=== PATIENT | male | born 1985 | race African-American/Black ===

== ENCOUNTER 2019-05-06 16:53 | Outpatient (CLI) | payer OTHER, SELFPAY ==
--- NOTE | ~2019-05-06 | MR_ITS ---
EXAMINATION: MR foot RT wo con DATE: 05/06/2019 18:07 INDICATION: Right foot pain. TECHNIQUE: Magnetic resonance imaging (MRI) of the right foot was performed without intravenous contr ast. Sequences included sagittal T1-weighted FSE and STIR FSE, long-axis PD-weighted FS FSE and PD-we ighted FSE, and short-axis PD-weighted FS FSE and T1-weighted FSE. COMPARISON: Right foot radiographs 04/23/2019, 04/16/2019 FINDINGS: There is mild hallux valgus. There is a skin marker medial to first metatarsophalangeal gabriela nt. No fracture. There is mild osteoarthritis of first metatarsophalangeal joint. Lisfranc ligament i s intact. There is a 17 x 8 mm ganglion cyst plantar to intermediate cuneiform. The flexor and extens or tendons are normal. IMPRESSION: 1. Mild hallux valgus. 2. Mild osteoarthritis of first metatarsophalangeal joint. 3. 17 mm ganglion cyst plantar to intermediate cuneiform. Reviewed, dictated and finalized at location A. TAL PRE PRESS OPERATOR
== END 2019-05-06 16:54 | disposition home or self-care (01) ==
PROVIDERS: PCP Orthopaedic Surgery; Visit Provider Orthopaedic Surgery
DX: M20.11 Hallux valgus (acquired), right foot (principal); M19.071 Primary osteoarthritis, right ankle and foot; M67.471 Ganglion, right ankle and foot
CPT/HCPCS: 73718

== ENCOUNTER 2020-10-02 15:46 | Emergency (ER) | payer SELFPAY ==
[2020-10-02] VITALS (16 sets, daily range): BP systolic 130–158; BP diastolic 80–94; PULSE 60–70; RESP 16–27; TEMP 36.4; O2SAT 95–100
--- NOTE | ~2020-10-02 | XR_ITS ---
EXAMINATION: XR chest 2V DATE: 10/02/2020 16:12 INDICATION: Shortness of breath TECHNIQUE: PA and lateral views of the chest are obtained. COMPARISON: None available FINDINGS: The lungs are free of acute opacities. There is no pleural effusion or pneumothorax. The ca rdiomediastinal silhouette is normal. The visualized bones and soft tissues are unremarkable. IMPRESSION: 1. No acute cardiopulmonary abnormality. Reviewed, dictated and finalized at location B.
--- NOTE | 2020-10-02 15:49 | ECG_ITS ---
Measurements Intervals [place] Rate: 63 P: 35 IA: 177 QRS: 27 QRSD: 104 T: 13 QT: 375 QTc: 386 Interpretive Statements SINUS RHYTHM CONSIDER INFERIOR INFARCT, AGE INDETERMINATE BORDERLINE T WAVE ABNORMALITY- ANTERIOR LEADS BASELINE ARTIFACT- I, II, AVR, AVL ABNORMAL ECG Electronically Signed On 10-02-2020 15:59:34 CDT by Christopher Marin D.O.
[2020-10-02 16:05] LABS: Basophils Absolute Auto 0.1 K/mm3 (0.0-0.1); Basophils Percent Auto 0.6 % (0.2-1.2); Eosinophils Absolute Auto 0.2 K/mm3 (0-0.3); Eosinophils Percent Auto 1.8 % (0-4.4); Hematocrit 47.8 % (42.0-52.0); Immature Granulocyte Absolute 0.06 K/mm3 (0.00-0.031); Immature Granulocyte Percent A 0.6 % (0-0.5); Lymphocytes Absolute Auto 3.17 K/mm3 (0.9-3.2); Lymphocytes Percent Auto 32.5 % (18.3-44.2); Mean Corpuscular HGB Conc 31.4 g/dl (32-36); Mean Corpuscular Hemoglobin 27.6 pg (26-34); Mean Corpuscular Volume 87.9 fl (80-100); Mean Platelet Volume 10.2 fl (7.4-10.4); Monocytes Absolute Auto 0.9 K/mm3 (0.1-0.6); Monocytes Percent Auto 9.2 % (2.6-8.5); Neutrophils Absolute Auto 5.4 K/mm3 (1.3-6.7); Neutrophils Percent Auto 55.3 % (45.5-73.1); Platelet Count Result 301 k/mm3 (150-375); Red Blood Count 5.44 M/mm3 (4.6-6.20); Red Cell Distribution Width 13.1 % (11.5-14.5); White Blood Count 9.8 K/mm3 (4.5-10.0)
[2020-10-02 16:14] LABS: Anion Gap 9 mmol/L (8-16); Blood Urea Nitrogen 10 mg/dL (9-20); Calcium 9.4 mg/dL (8.4-10.2); Carbon Dioxide 23 mmol/L (22-30); Chloride 109 mmol/L (98-107); Estimated CRCL calculation 91 ml/min; Estimated Glomerular Filt Rate > 60; Glucose 114 mg/dL (75-110); Potassium 3.7 mmol/L (3.4-5.0); Sodium 141 mmol/L (137-145)
[2020-10-02 17:35] LABS: NT Pro B Type Natriuretic Pept 82 pg/mL (5-100)
--- NOTE | 2020-10-02 17:41 | ED.GENADULT ---
HPI - General Adult General Chief complaint: Shortness of Breath/Dyspnea Stated complaint: hard to breathe, blanking out of space Time Seen by Provider: 10/02/20 16:55 Source: patient History of Present Illness HPI narrative: Patient is a 35 y/o male complaining of moderate to severe SOB for last 2 days. He has no cough, chest pain, leg swelling or fever. He states that upright position seems to help his SOB. Related Data Home Medications Medication Instructions Recorded Confirmed Unable to Obtain Home Medications 10/02/20 10/02/20 Allergies Allergy/AdvReac Type Severity Reaction Status Date / Time No Known Allergies Allergy Verified 10/02/20 17:23 Review of Systems Constitutional: Constitutional: Denies chills, Denies fever(s), Denies headache(s) and Denies weakness Eyes: Eyes: Denies blurry vision ENT: Denies headache(s) and Denies neck pain Cardiovascular: Cardiovascular: Denies chest pain and Reports dyspnea Respiratory: Respiratory: Denies cough and Reports dyspnea Gastrointestinal: Gastrointestinal: Denies abdominal pain, Denies diarrhea, Denies nausea and Denies vomiting Genitourinary: Genitourinary: Denies hematuria and Denies dysuria Musculoskeletal: Musculoskeletal: Denies back pain and Denies neck pain Neurologic: Denies headache(s) and Denies weakness [facility] Past Medical History Medical History (Updated 10/03/20 @ 00:00 by Background Daemon) Contusion of foot, right History of hypertension Tarsal tunnel syndrome of right side Family History Family History Other Cerebrovascular accident Diabetes mellitus Family history of alcoholism Family history of arthritis Family history of cardiovascular disease Family history of mental disorder Hypertension Social History Social History Gender identity (if verbalized by the patient): Male Exam Const: General: no acute distress and well developed Orientation/consciousness: oriented to person, oriented to place, oriented to time and patient oriented x3 HENMT: Head: normocephalic Ears: external ears normal General nose exam: Normal external nose present Eyes: General: appearance normal, both eyes and all related structures Conjunctivae: conjunctivae normal Neck: Neck: normal visual inspection and full ROM Chest: Chest palpation & inspection: normal inspection of the chest and no tenderness Resp: Effort & Inspection: normal respiratory effort Auscultation: clear to auscultation bilaterally Cardio: Rate: regular rate Rhythm: regular rhythm GI: GI Palp: No abdominal tenderness and Yes Soft to palpation Skin: General skin exam: normal color and turgor normal Neuro: General: oriented to person, oriented to place, oriented to time and patient oriented x3 Cognition (Neuro): normal cognition Extrem: General: normal to inspection, full ROM and no pedal edema Psych: Appearance: grossly normal Mental Status: mental status grossly normal Affect: normal affect Course Vital Signs Vital signs: Vital Signs Temperature 36.4 C 10/02/20 15:59 Pulse Rate 65 10/02/20 15:59 Respiratory Rate 20 10/02/20 15:59 Blood Pressure 149/94 H 10/02/20 15:59 Pulse Oximetry 100 10/02/20 15:59 Temperature 36.4 C 10/02/20 15:59 Pulse Rate 66 10/02/20 22:34 Respiratory Rate 22 H 10/02/20 22:34 Blood Pressure 158/89 H 10/02/20 22:34 Pulse Oximetry 99 10/02/20 22:34 Medical Decision Making Vital Signs Vital Signs: Vital Signs Temperature 36.4 C 10/02/20 15:59 Pulse Rate 65 10/02/20 15:59 Respiratory Rate 20 10/02/20 15:59 Blood Pressure 149/94 H 10/02/20 15:59 Pulse Oximetry 100 10/02/20 15:59 Temperature 36.4 C 10/02/20 15:59 Pulse Rate 66 10/02/20 22:34 Respiratory Rate 22 H 10/02/20 22:34 Blood Pressure 158/89 H 10/02/20 22:34 Pulse Oximetry 99 10/02/20
[2020-10-02 18:00] LABS: Troponin I < 0.012 ng/mL (0.000-0.034)
[2020-10-02 18:15] LABS: D Dimer 0.27 ug/mL (<0.48)
--- NOTE | 2020-10-02 21:03 | PC.NURSE ---
attempted stick for 3hr trop, failed. told Keila VEGA and Nisreen Gomez RN. Contacted Lily Boss (?), on my own for stick. Said she would be on her way.
--- NOTE | 2020-10-02 21:09 | PC.NURSE ---
attempted to obtain labs for Troponin, unable at this time. several attempts made. armature winder repairer notified.
[2020-10-02 22:00] LABS: Troponin I < 0.012 ng/mL (0.000-0.034)
== END 2020-10-02 23:10 | disposition home or self-care (01) ==
PROVIDERS: Emergency Medicine; Emergency Provider Emergency Medicine
DX: R06.02 Shortness of breath (principal)
CPT/HCPCS: 36415; 71046; 80048; 83880; 84484; 85025; 85380; 93005; 99284

== ENCOUNTER 2020-10-15 22:14 | Emergency (ER) | payer MEDICARE, SELFPAY ==
--- NOTE | ~2020-10-15 | CT_ITS ---
EXAMINATION: CT brain wo con DATE: 10/16/2020 00:51 INDICATION: Headache. TECHNIQUE: Computed tomography (CT) of the head was performed without intravenous contrast. The mA wa s adjusted according to patient size. Iterative reconstruction technique was employed. The dose-lengt h product was 681.00 mGy-cm. COMPARISON: Head CT 03/10/2017 FINDINGS: There is no intracranial hemorrhage, acute infarction, or abnormal intracranial mass lesion . The ventricles are normal in size. The orbits are normal. There is mild mucosal thickening in the p aranasal sinuses. The mastoid air cells are normal. IMPRESSION: 1. Normal brain. Reviewed, dictated and finalized at location A. IMPRESSION: 1. Normal brain.
[2020-10-15 22:27] VITALS: BP 118/59; PULSE 66; RESP 17; TEMP 36.8; O2SAT 100
--- NOTE | 2020-10-16 00:35 | ED.GENADULT ---
HPI - General Adult General Chief complaint: Allergic Reaction Stated complaint: facial swelling Time Seen by Provider: 10/16/20 00:16 Source: RN notes reviewed History of Present Illness HPI narrative: Patient presents emergency department from home for headache. Patient states for the past 3 weeks he has been having intermittent pain that he feels like something is swelling inside his head over his right frontal forehead he denies any physical external swelling of the forehead he denies any ear pain vision changes rhinorrhea sore throat numbness or tingling in extremities or any other symptoms he states he does take medication at home for the pain that intermittently is helpful states did not take anything today he denies any fevers or chills Related Data Allergies Allergy/AdvReac Type Severity Reaction Status Date / Time No Known Allergies Allergy Verified 10/02/20 17:23 Review of Systems Review of Systems: Narrative: Gen.: Denies fevers or chills Eyes: Denies eye pain or visual change ENT: Denies congestion Respiratory: Denies shortness of breath or cough CV: Denies chest pain or palpitations GI: Denies abdominal pain nausea, emesis or diarrhea Musculoskeletal: Denies back pain or muscle pain Neuro: See HPI Skin: Denies rash Except as documented, all other systems reviewed and negative PMFSH Past Medical History Medical History Contusion of foot, right History of hypertension Tarsal tunnel syndrome of right side Family History Family History Other Cerebrovascular accident Diabetes mellitus Family history of alcoholism Family history of arthritis Family history of cardiovascular disease Family history of mental disorder Hypertension Social History Social History Gender identity (if verbalized by the patient): Male Exam Narrative: Exam Narrative: APPEARANCE: No acute distress, nontoxic, resting in bed EYES: EOMI HEENT: Normocephalic, atraumatic, TMs clear bilaterally nares patent or mucosa moist erythema exudate posterior pharynx no swelling of the forehead RESPIRATORY: No respiratory distress Clear to auscultation bilaterally with no rhonchi wheezing or rales. CARDIOVASCULAR: Regular rate and rhythm without murmurs rubs or gallops. ABDOMINAL: Soft, nontender, nondistended, no rebound or guarding MUSCULOSKELETAl: Moves all extremities. NEURO: Awake and alert x 4 Following commands, speech normal, no focal deficits SKIN:: Warm, dry. No rashes lesions or abrasions PSYCHIATRIC: Normal affect/mood, Course Course Emergency Course: Patient states headache is improved at this time Discussed with patient results of workup and diagnosis. Discussed need for follow-up with primary care, proper use of medication, and reasons to return to the emergency department. Patient understands and agrees to current treatment plan Vital Signs Vital signs: Vital Signs Temperature 98.2 F 10/15/20 22:27 Pulse Rate 66 10/15/20 22:27 Respiratory Rate 17 10/15/20 22:27 Blood Pressure 118/59 L 10/15/20 22:27 Pulse Oximetry 100 10/15/20 22:27 Temperature 98.2 F 10/15/20 22:27 Pulse Rate 66 10/15/20 22:27 Respiratory Rate 17 10/15/20 22:27 Blood Pressure 118/59 L 10/15/20 22:27 Pulse Oximetry 100 10/15/20 22:27 Medical Decision Making MDM Narrative Medical decision making narrative: Patient's headache was not sudden or maximal in onset. There are no focal deficits on exam. Subarachnoid hemorrhage is felt to be unlikely at this time. There is no history of fever and neck is supple to evaluation without meningismus. Meningitis is felt to be unlikely. No traumatic history or signs of trauma on evaluation. Risk factors for cerebral venous thrombosis reviewed, no visual acuity change benign funduscopy. Cerebral venous thrombosis is felt
[2020-10-16] MEDS: IBUPROFEN 600 MG TABLET PO (01:14)
[2020-10-16 01:42] VITALS: BP 151/87; PULSE 84; RESP 17; O2SAT 99
--- NOTE | 2020-10-16 03:19 | PC.NURSE ---
d/c while this RN with another pt.
== END 2020-10-16 01:43 | disposition home or self-care (01) ==
PROVIDERS: Emergency Provider Emergency Medicine
DX: R51.9 Headache, unspecified (principal); I10 Essential (primary) hypertension
CPT/HCPCS: 70450; 99284; A9270

== ENCOUNTER 2022-11-20 17:42 | Emergency (ER) | payer SELFPAY ==
[2022-11-20 17:46] VITALS: BP 154/94; PULSE 106; RESP 16; TEMP 36.7
--- NOTE | 2022-11-20 19:02 | ED.DENTAL ---
HPI - Dental/Oral General Chief complaint: Dental/Oral Stated complaint: hole inside of mouth Time Seen by Provider: 11/20/22 17:58 History of Present Illness HPI Narrative: 37-year-old male presented emergency department for evaluation of worsening dental pain. Patient states the pain started bothering him approximately 3 days ago. Patient does have a history of dental extraction and reports he does have follow-up with a dentist scheduled. Related Data Allergies Allergy/AdvReac Type Severity Reaction Status Date / Time No Known Allergies Allergy Verified 11/20/22 19:07 Review of Systems Review of Systems: All systems reviewed & are unremarkable except as noted in HPI and below PMFSH Past Medical History Medical History Contusion of foot, right History of hypertension Tarsal tunnel syndrome of right side Family History Family History Other Cerebrovascular accident Diabetes mellitus Family history of alcoholism Family history of arthritis Family history of cardiovascular disease Family history of mental disorder Hypertension Social History Social History Gender identity (if verbalized by the patient): Male Exam Narrative: APPEARANCE: Well appearing, no pain, no distress, well-nourished. HEAD: normocephalic, atraumatic. EYES: PERRLA/EOMI, conjunctivae clear. NOSE: Normal no drainage EARS:TMS clear with good light reflex. THROAT: Pharynx clear, no exudate. Dental: Dental caries with no abscess amenable to drainage, no trismus NECK: Supple. No adenopathy, no masses. RESPIRATORY: Airway patent, respirations nonlabored. Clear to auscultation bilaterally, no rales, rhonchi, wheezing. CARDIOVASCULAR: Regular rate and rhythm without murmurs rubs or gallops. ABDOMINAL: Soft, nontender, nondistended, normal bowel sounds MUSCULOSKELETAL: Moves all extremities. Strength/ROM intact, No edema, No calf tenderness. NEURO: Alert. Cranial nerves II through XII intact. Good gait. Good coordination Course Course Emergency Course: 37-year-old male with dental caries. Patient was started on antibiotics and provided medications for pain control. Patient was encouraged of close follow-up with his dentist. Vital Signs Vital signs: Vital Signs Temperature 98.1 F 11/20/22 17:46 Pulse Rate 106 H 11/20/22 17:46 Respiratory Rate 16 11/20/22 17:46 Blood Pressure 154/94 H 11/20/22 17:46 Temperature 98.1 F 11/20/22 17:46 Pulse Rate 95 11/20/22 19:30 Respiratory Rate 16 11/20/22 19:30 Blood Pressure 156/76 H 11/20/22 19:30 Pulse Oximetry 98 11/20/22 19:30 Discharge Plan Discharge Clinical Impression: Toothache Patient Disposition: Home, Self-Care Condition: Stable Instructions: Antibiotic Form, Toothache (ED) Additional Instructions: Antibiotic as directed till completed. Ibuprofen for pain control. Oxly as needed for additional pain control. Have close follow-up with your dentist. Prescriptions: New hydrocodone-acetaminophen 5-325 mg tablet 1 tablet PO Q12H PRN (Reason: pain) Qty: 10 0RF No Action ibuprofen [IBU] 600 mg tablet 600 mg PO Q6H PRN (Reason: pain) Qty: 20 0RF Follow-up/Referrals: UNKNOWN,DOCTOR [Primary Care Provider] -
[2022-11-20] MEDS: HYDROcodone/acetaminophen (*CRX) 5-325 MG TABLET 1 TAB PO (19:07)
[2022-11-20] MEDS: AMOXICILLIN/CLAVULANATE K 875-125 MG TAB 1 TABLET PO (19:07)
[2022-11-20 19:30] VITALS: BP 156/76; PULSE 95; RESP 16; O2SAT 98
== END 2022-11-20 19:32 | disposition home or self-care (01) ==
LOC: ANHED 19:25
PROVIDERS: Emergency Provider Emergency Medicine
DX: K08.89 Other specified disorders of teeth and supporting structures (principal); I10 Essential (primary) hypertension
CPT/HCPCS: 99283; A9270

== ENCOUNTER 2023-04-29 22:01 | Emergency (ER) | payer MEDICARE, SELFPAY ==
--- NOTE | ~2023-04-29 | CT_ITS ---
CT of the Abdomen and Pelvis: Indication: Abdominal pain Technique: 2.5 mm axial scans were obtained through the abdomen and pelvis following intravenous adm inistration of 100 cc of Omnipaque 350. Dose reduction technique was used on this scan by utilizing a utomated exposure control and iterative reconstruction technique. The dose-length product (DLP) was 1 585.93 mGy-cm. Findings: Scans through the lung bases demonstrates several semisolid/groundglass right basilar pulm onary nodules, largest measuring 1 cm.. The liver, spleen, pancreas, gallbladder, adrenals and kidneys are within normal limits. No evidence of aortic aneurysm. No lymphadenopathy. No bowel obstruction or bowel wall thickening. There is no evidence to suggest acute appendicitis. Images through the pelvis were performed. Urinary bladder unremarkable. No pelvic mass seen. No ascit es. Impression: Right basilar probably semisolid/ground glass nodules, largest measuring 1 cm. Findings could be infe ctious in nature. Short-term follow-up CT recommended to reassess in 1-3 months. Reviewed, dictated and finalized at [facility]. K SUPERVISOR Impression: Right basilar probably semisolid/ground glass nodules, largest measuring 1 cm. Findings could be infectious in nature. Short-term follow-up CT recommended to reassess in 1-3 months.
[2023-04-29 22:05] VITALS: BP 146/90; PULSE 93; RESP 15; TEMP 36.7; O2SAT 100
[2023-04-29 22:29] LABS: Basophils Percent Auto 0.3 % (0.2-1.2); Eosinophils Absolute Auto 0.1 K/mm3 (0-0.3); Hematocrit 43.3 % (42.0-52.0); Hemoglobin 13.5 g/dL (14.0-18.0); Immature Granulocyte Absolute 0.03 K/mm3 (0.00-0.031); Immature Granulocyte Percent A 0.5 % (0-0.5); Lymphocytes Absolute Auto 2.83 K/mm3 (0.9-3.2); Lymphocytes Percent Auto 44.9 % (18.3-44.2); Mean Corpuscular HGB Conc 31.2 g/dl (32-36); Mean Corpuscular Volume 86.6 fl (80-100); Mean Platelet Volume 11.3 fl (7.4-10.4); Monocytes Absolute Auto 1.4 K/mm3 (0.1-0.6); Monocytes Percent Auto 22.9 % (2.6-8.5); Neutrophils Absolute Auto 1.9 K/mm3 (1.3-6.7); Neutrophils Percent Auto 30.4 % (45.5-73.1); Platelet Count Result 219 k/mm3 (150-375); Red Cell Distribution Width 12.5 % (11.5-14.5); White Blood Count 6.3 K/mm3 (4.5-10.0)
[2023-04-29 22:41] LABS: Alanine Aminotransferase 23 U/L (6-50); Albumin Level 3.8 g/dL (3.5-5.1); Alkaline Phosphatase 63 U/L (38-126); Anion Gap 7 mmol/L (8-16); Aspartate Amino Transferase 34 U/L (17-59); Bilirubin,Total 0.9 mg/dL (0.2-1.3); Blood Urea Nitrogen 16 mg/dL (9-20); Calcium 8.3 mg/dL (8.4-10.2); Carbon Dioxide 22 mmol/L (22-30); Chloride 106 mmol/L (98-107); Estimated CRCL calculation 109 ml/min; Estimated Glomerular Filt Rate > 60; Glucose 103 mg/dL (65-110); Lipase 98 U/L (23-300); Sodium 135 mmol/L (137-145)
[2023-04-30 00:48] VITALS: BP 156/106; PULSE 76; RESP 18; O2SAT 98
[2023-04-30 03:05] VITALS: BP 133/84; PULSE 86; RESP 18; O2SAT 98
[2023-04-30 03:23] LABS: Appearance Urine Clear (Clear); Bacteria Urine None Seen /hpf; Bilirubin Urine 1+ (Negative); Blood Urine Negative (Negative); Color Urine Dark Yellow (Yellow); Glucose Urine UA Negative (Negative); Ketones Urine Trace mg/dL (Negative); Leukocyte Esterase Ur Negative LEU/UL (Negative); Nitrate Urine Negative (Negative); Non Pathogenic Casts 0-2; Protein Urine 1+ mg/dL (Negative); Squamous Epithelial Cell Urine None seen /hpf (Few); WBC Urine 0-5 /hpf; pH Urine 5.5 (5.0-9.0)
[2023-04-30] MEDS: SODIUM CHLORIDE 0.9% IV 1,000 ML 999 ML IV CONT (03:49)
[2023-04-30] MEDS: ONDANSETRON INJ 4 MG/2 ML VIAL IV PUSH (03:49)
[2023-04-30] MEDS: MORPHINE SULFATE (*CRX) 4 MG/ML INJ IV PUSH (03:49)
[2023-04-30 03:57] LABS: Specific Grav Ur 1.037 (1.001-1.035)
[2023-04-30 04:04] LABS: Add Urine Microscopic? YES
--- NOTE | 2023-04-30 05:14 | ED.GENADULT ---
HPI - General Adult General Chief complaint: Abdominal Pain Stated complaint: abdominal pain Time Seen by Provider: 04/30/23 03:04 History of Present Illness HPI narrative: Patient is a 37-year-old gentleman presents emergency department chief complaint of intermittent abdominal pain for the last several months patient states the pain is more epigastric and right upper quadrant patient reports that it is worse whenever he eats greasy fatty foods. The patient denies fever denies chills Related Data Allergies Allergy/AdvReac Type Severity Reaction Status Date / Time No Known Allergies Allergy Verified 04/30/23 03:07 Review of Systems Review of Systems: A 10 system review of systems was completed on the patient and is negative except for what is stated in the HPI. Nursing and ancillary documentation was reviewed. [facility] Past Medical History Medical History Contusion of foot, right History of hypertension Tarsal tunnel syndrome of right side Family History Family History Other Cerebrovascular accident Diabetes mellitus Family history of alcoholism Family history of arthritis Family history of cardiovascular disease Family history of mental disorder Hypertension Social History Social History Gender identity (if verbalized by the patient): Male Exam Narrative: GENERAL: Well-appearing, well-nourished, and in no acute distress. HEAD: Normocephalic, atraumatic. EYES: PERRLA and EOMI. ENT: Nares clear, no rhinorrhea or epistaxis. Mucous membranes moist. NECK: Supple. CHEST: Clear to auscultation. No respiratory distress. HEART: Regular rate and rhythm. No murmur heard. Normal peripheral pulses. ABDOMEN: Soft, tenderness to palpation in the epigastric and right upper quad, nondistended, normal active bowel sounds. EXTREMITIES: Normal range of motion. No edema. SKIN: Warm, dry, no rash. NEURO: No focal deficits. Alert and oriented x3. PSYCH: Normal mood and affect. Course Vital Signs Vital signs: Vital Signs Temperature 36.7 C 04/29/23 22:05 Pulse Rate 93 04/29/23 22:05 Respiratory Rate 15 04/29/23 22:05 Blood Pressure 146/90 H 04/29/23 22:05 Pulse Oximetry 100 04/29/23 22:05 Oxygen Delivery Room Air 04/29/23 22:05 Temperature 36.7 C 04/29/23 22:05 Pulse Rate 86 04/30/23 03:05 Respiratory Rate 18 04/30/23 03:05 Blood Pressure 133/84 04/30/23 03:05 Pulse Oximetry 98 04/30/23 03:05 Oxygen Delivery Room Air 04/29/23 22:05 Medical Decision Making MDM Narrative Medical decision making narrative: Differential diagnosis includes gastritis, biliary colic, cholecystitis, choledocholithiasis, pancreatitis Laboratory studies were obtained which were within normal limits CT scan of the abdomen pelvis showed no acute abnormalities. Patient will be started on Protonix and given prescription for Zofran patient will be referred to primary care and may need further testing as an outpatient. Vital Signs Vital Signs: Vital Signs Temperature 36.7 C 04/29/23 22:05 Pulse Rate 93 04/29/23 22:05 Respiratory Rate 15 04/29/23 22:05 Blood Pressure 146/90 H 04/29/23 22:05 Pulse Oximetry 100 04/29/23 22:05 Oxygen Delivery Room Air 04/29/23 22:05 Temperature 36.7 C 04/29/23 22:05 Pulse Rate 86 04/30/23 03:05 Respiratory Rate 18 04/30/23 03:05 Blood Pressure 133/84 04/30/23 03:05 Pulse Oximetry 98 04/30/23 03:05 Oxygen Delivery Room Air 04/29/23 22:05 Lab Data 04/29/23 22:12 04/29/23 22:12 Labs: Lab Results 04/29/23 04/30/23 Range/Units 22:12 03:09 WBC 6.3 (4.5-10.0) K/mm3 RBC 5.00 (4.6-6.20) M/mm3 Hgb 13.5 L (14.0-18.0) g/dL Hct 43.3 (42.0-52.0) % MCV 86.6 (80-100)
[2023-04-30 05:45] VITALS: BP 134/73; PULSE 73; RESP 17; O2SAT 99
== END 2023-04-30 05:45 | disposition home or self-care (01) ==
PROVIDERS: Emergency Provider Emergency Medicine
DX: K29.70 Gastritis, unspecified, without bleeding (principal); I10 Essential (primary) hypertension
CPT/HCPCS: 36415; 74177; 80053; 81001; 83690; 85025; 96361; 96374; 96375; 99284; J2270; J2405; J7030; Q9967

== ENCOUNTER 2023-06-20 17:48 | Emergency (ER) | payer OTHER, MEDICAID, SELFPAY ==
[2023-06-20] VITALS (8 sets, daily range): BP systolic 131–148; BP diastolic 72–126; PULSE 81–107; RESP 18–20; TEMP 37.3; O2SAT 99–100
--- NOTE | ~2023-06-20 | CT_ITS ---
EXAMINATION: CT abdomen pelvis w con DATE: 06/20/2023 20:07 INDICATION: Recent colonoscopy. Rectal pain. TECHNIQUE: Computed tomography (CT) of the abdomen and pelvis was performed with 100 cc Omnipaque 350 intravenous contrast. The dose-length product was 1148.00 mGy-cm. Automated exposure control and ite rative reconstruction technique were employed. COMPARISON: CT dated 04/30/2023. FINDINGS: Lung bases unremarkable. Heart size normal. No significant pleural or pericardial effusion. The liver, spleen, pancreas, adrenal glands and kidneys are unremarkable. Colonic diverticulosis wit hout evidence for diverticulitis. Bladder is decompressed. Normal appendix. No abnormal pelvic masses or fluid collections. No significant vascular abnormality. Gallbladder is contracted. No lymphadenop athy. Small hiatal hernia. Bladder is decompressed. No acute osseous abnormality. Interval resolution of right lower lobe groundglass nodules. IMPRESSION: 1. No acute abdominal abnormality. Reviewed, dictated and finalized at location A.
--- NOTE | 2023-06-20 18:07 | ED.GENADULT ---
HPI - General Adult General Chief complaint: Recheck/Abnormal Lab/Rx Stated complaint: colonoscopy in [place] today, c/o pain Time Seen by Provider: 06/20/23 17:53 Source: patient Mode of arrival: ambulatory Limitations: no limitations History of Present Illness HPI narrative: Patient is a 37-year-old male who presents the ED with report of rectal pain. Patient reports he has been having ongoing rectal pain for the last 5 months. He underwent outpatient colonoscopy today with Dr. Lucas Mauro in an outpatient GI clinic in [place], [place] and was told he had fairly severe internal hemorrhoids. He was told he may need laser surgery for the internal hemorrhoids. Since having the procedure done today, patient has had worsening rectal pain. He has not tried anything for the pain. He denies any rectal bleeding or bowel movements today. He did have some bleeding with bowel movements yesterday after taking the colonoscopy prep. Denies abdominal pain, nausea, vomiting, fevers, urinary complaints. Related Data Allergies Allergy/AdvReac Type Severity Reaction Status Date / Time No Known Allergies Allergy Verified 04/30/23 03:07 Review of Systems Review of Systems: CONSTITUTIONAL: Denies fever, chills, or sweats. GASTROINTESTINAL: See HPI. GENITOURINARY: Denies dysuria or hematuria. MUSCULOSKELETAL: Denies back pain, extremity pain, myalgia. All systems reviewed & are unremarkable except as noted in HPI and below PMFSH Past Medical History Medical History Contusion of foot, right History of hypertension Tarsal tunnel syndrome of right side Family History Family History Other Cerebrovascular accident Diabetes mellitus Family history of alcoholism Family history of arthritis Family history of cardiovascular disease Family history of mental disorder Hypertension Social History Social History Gender identity (if verbalized by the patient): Male Exam Narrative: GENERAL: Well appearing, obese with BMI of 36.0, non-toxic, in no acute distress. HEAD: Normocephalic, atraumatic. RESPIRATORY: Airway patent, respirations nonlabored. Clear to auscultation bilaterally, no rales, rhonchi, wheezing. CARDIOVASCULAR: Borderline tachycardic with regular rhythm without murmurs, rubs, or gallops. ABDOMINAL: Soft, minimal tenderness throughout upper abdomen, no lower abdominal tenderness, nondistended. Normoactive BS. MUSCULOSKELETAL: Moves all extremities. No gross deformities. SKIN: Warm, dry, normal color. NEURO: A&O X3. Speech clear. PSYCHIATRIC: Appropriate mood and affect. Normal interaction. Course Vital Signs Vital signs: Vital Signs Temperature 99.1 F 06/20/23 17:52 Pulse Rate 107 H 06/20/23 17:52 Respiratory Rate 20 06/20/23 17:52 Blood Pressure 145/99 H 06/20/23 17:52 Pulse Oximetry 100 06/20/23 17:52 Oxygen Delivery Room Air 06/20/23 17:52 Temperature 99.1 F 06/20/23 17:52 Pulse Rate 81 06/20/23 20:26 Respiratory Rate 18 06/20/23 20:26 Blood Pressure 139/79 06/20/23 20:26 Pulse Oximetry 100 06/20/23 20:30 Oxygen Delivery Room Air 06/20/23 17:52 Medical Decision Making MDM Narrative Medical decision making narrative: Patient presented to ED with acute on chronic rectal pain status post outpatient colonoscopy today. Outpatient colonoscopy showed internal hemorrhoids. No other significant associated symptoms at this time. Vital signs are stable upon arrival, patient borderline tachycardic. Fluids initiated. Exam unremarkable. I discussed performing rectal exam however patient deferred at this time, states pain feels the same as what he has been experiencing over the last several weeks. Laboratory studies fairly unremarkable. CBC with leukocytosis of 10.4. Stab
[2023-06-20] MEDS: SODIUM CHLORIDE 0.9% IV 1,000 ML 999 ML IV CONT (18:22)
[2023-06-20] MEDS: MORPHINE SULFATE (*CRX) 4 MG/ML INJ IV PUSH (18:23)
[2023-06-20] MEDS: ONDANSETRON INJ 4 MG/2 ML VIAL IV PUSH (18:24)
[2023-06-20 19:15] LABS: Basophils Percent Auto 0.4 % (0.2-1.2); Eosinophils Absolute Auto 0.4 K/mm3 (0-0.3); Eosinophils Percent Auto 3.6 % (0-4.4); Hemoglobin 13.6 g/dL (14.0-18.0); Immature Granulocyte Absolute 0.05 K/mm3 (0.00-0.031); Immature Granulocyte Percent A 0.5 % (0-0.5); Lymphocytes Absolute Auto 3.23 K/mm3 (0.9-3.2); Lymphocytes Percent Auto 31.2 % (18.3-44.2); Mean Corpuscular HGB Conc 30.9 g/dl (32-36); Mean Corpuscular Hemoglobin 27.6 pg (26-34); Mean Corpuscular Volume 89.2 fl (80-100); Monocytes Absolute Auto 1.5 K/mm3 (0.1-0.6); Monocytes Percent Auto 14.5 % (2.6-8.5); Neutrophils Absolute Auto 5.2 K/mm3 (1.3-6.7); Neutrophils Percent Auto 49.8 % (45.5-73.1); Platelet Count Result 309 k/mm3 (150-375); Red Blood Count 4.93 M/mm3 (4.6-6.20); Red Cell Distribution Width 13.6 % (11.5-14.5); White Blood Count 10.4 K/mm3 (4.5-10.0)
[2023-06-20 19:30] LABS: Alanine Aminotransferase 18 U/L (6-50); Alkaline Phosphatase 72 U/L (38-126); Anion Gap 7 mmol/L (8-16); Aspartate Amino Transferase 26 U/L (17-59); Bilirubin,Total 0.6 mg/dL (0.2-1.3); Blood Urea Nitrogen 11 mg/dL (9-20); Calcium 9.2 mg/dL (8.4-10.2); Carbon Dioxide 26 mmol/L (22-30); Chloride 106 mmol/L (98-107); Estimated CRCL calculation 110 ml/min; Estimated Glomerular Filt Rate > 60; Glucose 78 mg/dL (65-110); Lactic Acid Reflex 1.9 mmol/L (0.7-2.0); Potassium 3.6 mmol/L (3.4-5.0); Sodium 139 mmol/L (137-145)
--- NOTE | 2023-06-20 19:39 | PC.NURSE ---
this rn assumed care of patient. this rn took patient report from SILVIA De La Torre.
[2023-06-20 19:40] LABS: Appearance Urine Clear (Clear); Bilirubin Urine Negative (Negative); Blood Urine Negative (Negative); Color Urine Yellow (Yellow); Glucose Urine UA Negative (Negative); Ketones Urine Trace mg/dL (Negative); Leukocyte Esterase Ur Negative LEU/UL (Negative); Nitrate Urine Negative (Negative); Protein Urine Negative (Negative); Specific Grav Ur 1.021 (1.001-1.035); pH Urine 6.5 (5.0-9.0)
[2023-06-20 19:52] LABS: Add Urine Microscopic? YES
== END 2023-06-20 21:09 | disposition home or self-care (01) ==
PROVIDERS: Emergency Provider Physician Assistant
DX: K62.89 Other specified diseases of anus and rectum (principal); G89.29 Other chronic pain; I10 Essential (primary) hypertension
CPT/HCPCS: 36415; 74177; 80053; 83605; 85025; 96361; 96374; 96375; 99284; J2270; J2405; J7030; Q9967

== ENCOUNTER 2023-09-09 19:47 | Emergency (ER) | payer OTHER, MEDICAID, SELFPAY ==
[2023-09-09] VITALS (11 sets, daily range): BP systolic 120–184; BP diastolic 78–109; PULSE 73–94; RESP 13–20; TEMP 37.1; O2SAT 100
--- NOTE | 2023-09-09 | ECG_ITS ---
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 Measurements Intervals [place] Rate: 68 P: 50 LA: 187 QRS: -12 QRSD: 102 T: 26 QT: 392 QTc: 417 Interpretive Statements SINUS RHYTHM Compared to ECG 09/09/2023 19:59:57 No significant changes Electronically Signed On 09-10-2023 14:11:36 CDT by Judy Medina M.D.
--- NOTE | ~2023-09-09 | CT_ITS ---
EXAMINATION: CT brain wo con DATE: 09/09/2023 23:49 INDICATION: near syncopal episode today . TECHNIQUE: Computed tomography (CT) of the head was performed without intravenous contrast. The mA wa s adjusted according to patient size. Iterative reconstruction technique was employed. The dose-lengt h product was 605.33 mGy-cm. COMPARISON: 10/16/2020. FINDINGS: No acute intracranial hemorrhage or extra-axial fluid collection. No hydrocephalus, mass, or herniation. No acute ischemic infarct. Unremarkable dural venous sinus attenuation. No acute osseous abnormality. Small bilateral mastoid effusions, ethmoid mucosal thickening, the remaining aerated spaces are clear . IMPRESSION: No acute intracranial process. Reviewed, dictated and finalized at location K.
--- NOTE | ~2023-09-09 | XR_ITS ---
EXAMINATION: XR chest 1V portable Exam Date/Time: 09/09/2023 20:00 CDT HISTORY: CP Comparison: 10/02/2020. RESULT: Lines, tubes, and devices: None. Lungs and pleura: Clear. Cardiomediastinal silhouette: Stable. Other: No acute osseous or upper abdominal finding. IMPRESSION: No acute cardiopulmonary process. Reviewed, dictated and finalized at location K.
--- NOTE | 2023-09-09 19:50 | ECG_ITS ---
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 Measurements Intervals [place] Rate: 84 P: 57 LA: 177 QRS: -11 QRSD: 101 T: 24 QT: 353 QTc: 419 Interpretive Statements SINUS RHYTHM No previous ECG available for comparison Electronically Signed On 09-10-2023 13:54:35 CDT by Judy Medina M.D.
[2023-09-09] MEDS: ASPIRIN 81 MG CHEWABLE TABLET 324 MG PO (19:59)
[2023-09-09 20:27] LABS: Basophils Absolute Auto 0.1 K/mm3 (0.0-0.1); Basophils Percent Auto 0.7 % (0.2-1.2); Eosinophils Absolute Auto 0.6 K/mm3 (0-0.3); Eosinophils Percent Auto 5.1 % (0-4.4); Hematocrit 45.9 % (42.0-52.0); Hemoglobin 14.6 g/dL (14.0-18.0); Immature Granulocyte Absolute 0.06 K/mm3 (0.00-0.031); Immature Granulocyte Percent A 0.5 % (0-0.5); Lymphocytes Absolute Auto 4.13 K/mm3 (0.9-3.2); Lymphocytes Percent Auto 33.7 % (18.3-44.2); Mean Corpuscular HGB Conc 31.8 g/dl (32-36); Mean Corpuscular Hemoglobin 27.5 pg (26-34); Mean Corpuscular Volume 86.6 fl (80-100); Mean Platelet Volume 10.1 fl (7.4-10.4); Monocytes Absolute Auto 1.3 K/mm3 (0.1-0.6); Monocytes Percent Auto 10.4 % (2.6-8.5); Neutrophils Absolute Auto 6.1 K/mm3 (1.3-6.7); Neutrophils Percent Auto 49.6 % (45.5-73.1); Platelet Count Result 296 k/mm3 (150-375); Red Cell Distribution Width 13.5 % (11.5-14.5); White Blood Count 12.3 K/mm3 (4.5-10.0)
[2023-09-09 20:39] LABS: Partial Thromboplastin Time 28.4 Seconds (22.3-36.8); Prothrombin Time 13.3 Seconds (11.1-14.7)
[2023-09-09 20:40] LABS: Alanine Aminotransferase 15 U/L (6-50); Albumin Level 4.4 g/dL (3.5-5.1); Alkaline Phosphatase 98 U/L (38-126); Anion Gap 8 mmol/L (4-12); Aspartate Amino Transferase 21 U/L (17-59); Bilirubin,Total 0.5 mg/dL (0.2-1.3); Blood Urea Nitrogen 13 mg/dL (9-20); Carbon Dioxide 24 mmol/L (22-30); Chloride 107 mmol/L (98-107); Estimated CRCL calculation 98 ml/min; Estimated Glomerular Filt Rate > 60; Glucose 88 mg/dL (65-110); Lipase 83 U/L (23-300); Potassium 3.7 mmol/L (3.4-5.0); Sodium 139 mmol/L (137-145)
[2023-09-09 20:51] LABS: Troponin I < 0.012 ng/mL (0.000-0.034)
[2023-09-09 23:39] LABS: D Dimer 0.31 ug/mL (<0.48)
[2023-09-09 23:52] LABS: Troponin I < 0.012 ng/mL (0.000-0.034)
--- NOTE | 2023-09-10 00:08 | ED.CHESTPAIN ---
HPI - Chest Pain General Chief Complaint: Chest Pain Stated Complaint: my job made me come , chest pain Time Seen by Provider: 09/09/23 22:54 Source: patient Mode of arrival: ambulatory Limitations: no limitations History of Present Illness HPI narrative: Patient is a 38-year-old male who presents the ED with report of chest pain. Patient reports he has been having pain along his right lateral chest wall for the past 2 weeks. States pain is intermittent, worse with palpation. 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 He does note it was hot and he had several orders backing up. He denied fully losing consciousness. There was no seizure-like activity. His job then made him clock out and recommended he come to the ED for further evaluation. Patient does report having some chest pain throughout the episode. Denied knowingly feeling lightheaded or dizzy. Denies lightheadedness or dizziness currently. Denies shortness of breath, cough or cold symptoms, fevers, vision changes, abdominal pain. Related Data Allergies Allergy/AdvReac Type Severity Reaction Status Date / Time No Known Allergies Allergy Verified 04/30/23 03:07 Review of Systems Review of Systems: CONSTITUTIONAL: Denies fever, chills, or sweats. ENT: Denies vision changes CARDIOVASCULAR: See HPI RESPIRATORY: Denies cough or dyspnea. GASTROINTESTINAL: Denies abdominal pain, nausea, vomiting MUSCULOSKELETAL: Denies back pain, extremity pain, myalgia. NEUROLOGIC: See HPI All systems reviewed & are unremarkable except as noted in HPI and below PMFSH Past Medical History Medical History Contusion of foot, right History of hypertension Tarsal tunnel syndrome of right side Family History Family History Other Cerebrovascular accident Diabetes mellitus Family history of alcoholism Family history of arthritis Family history of cardiovascular disease Family history of mental disorder Hypertension Social History Social History Gender identity (if verbalized by the patient): Male Exam Narrative: GENERAL: Well appearing, obese with BMI of 32.2, non-toxic, in no acute distress. HEAD: Normocephalic, atraumatic. RESPIRATORY: Airway patent, respirations nonlabored. Clear to auscultation bilaterally, no rales, rhonchi, wheezing. No focal lung sounds. CARDIOVASCULAR: Regular rate and rhythm without murmurs, rubs, or gallops. radial pulses equal bilaterally. ABDOMINAL: Soft, no tenderness throughout upper abdomen, nondistended. Normoactive BS. MUSCULOSKELETAL: Moves all extremities. No gross deformities. TTP along R anterior chest wall, reproducing pain. SKIN: Warm, dry, normal color. NEURO: A&O X3. Speech clear. PSYCHIATRIC: Appropriate mood and affect. Normal interaction. Course Vital Signs Vital signs: Vital Signs Temperature 98.8 F 09/09/23 19:53 Pulse Rate 94 09/09/23 19:53 Respiratory Rate 16 09/09/23 19:53 Blood Pressure 184/92 H 09/09/23 19:53 Pulse Oximetry 100 09/09/23 19:53 Oxygen Delivery Room Air 09/09/23 19:53 Temperature 98.8 F 09/09/23 19:53 Pulse Rate 73 09/10/23 00:23 Respiratory Rate 18 09/10/23 00:23 Blood Pressure 134/78 09/10/23 00:23 Pulse Oximetry 100 09/10/23 00:23 Oxygen Delivery Room Air 09/09/23 20:27 MDM - Chest Pain MDM Narrative Medical decision making narrative: Patient presented to ED with 2 week history of right-sided chest pain. Reportedly had episode of near-syncope at work today. Vital signs are stable. Patient no acute distress. Neurologically intact. No focal deficits. No orthostatic hypotension noted. EKG w/o concerning ischemic changes. Troponin negative x2 HEART Score =1 D-dimer WNL CXR clear Remainder of basic labor
[2023-09-10 00:23] VITALS: BP 134/78; PULSE 73; RESP 18; O2SAT 100
== END 2023-09-10 00:24 | disposition home or self-care (01) ==
PROVIDERS: Emergency Medicine; Emergency Provider Physician Assistant
DX: R07.89 Other chest pain (principal); R55 Syncope and collapse; I10 Essential (primary) hypertension
CPT/HCPCS: 36415; 70450; 71045; 80053; 83690; 84484; 85025; 85380; 85610; 85730; 93005; 99284; A9270

== ENCOUNTER 2025-02-26 21:53 | Emergency (ER) | payer OTHER, SELFPAY ==
--- NOTE | ~2025-02-26 | CT_ITS ---
CT abdomen pelvis w con Clinical History: abd pain . Comparison: 06/20/2023 Technique: Axial images lung bases to symphysis pubis 100 mL Omnipaque 350 Coronal, sagittal reformats CT images acquired with automatic exposure control for dose reduction DLP: 1140 mGy-cm Findings: Lung bases: Clear. Visualized heart and pericardium: Unremarkable. Liver: Enlarged. Steatosis. Gallbladder: Contracted. Spleen: Unremarkable. Pancreas: Unremarkable. Adrenal glands: Unremarkable. Kidneys: Right kidney- No hydronephrosis. No renal stones. Left kidney- No hydronephrosis. No renal stones. Distal esophagus/stomach: Small hiatal hernia. Small bowel loops: Normal caliber and wall thickness. Colon: Diverticula. Normal caliber and wall thickness. Normal RLQ appendix. Nodes: No enlarged nodes. Peritoneum: No ascites. No free air. Urinary bladder: Unremarkable. Prostate: Unremarkable. Bones: No acute bony abnormality. Soft tissues: Unremarkable. Aorta: No aneurysm or dissection. IVC: Unremarkable. Main portal vein/SMV/splenic vein: Patent. IMPRESSION: 1. No acute findings. Reviewed, dictated and finalized at location R. HER ANCHOR IMPRESSION: 1. No acute findings.
--- NOTE | ~2025-02-26 | XR_ITS ---
Examination: XR knee LT 3V, XR knee RT 3V Clinical History: knee pain/ NO INJURY Comparison: None Technique: 4 views left knee, 3 views right knee Findings/impression: Left knee: 1. No fracture, dislocation, or effusion left knee. Right knee: 1. No fracture or dislocation right knee. 2. Small joint effusion not excluded. 3. Minimal patellar osteophytes. Reviewed, dictated and finalized at location R. F KNOWLEDGE OFFICER
[2025-02-26 21:55] VITALS: BP 131/74; PULSE 95; RESP 20; TEMP 37; O2SAT 99
[2025-02-26 22:22] LABS: Hematocrit 45.1 % (42.0-52.0); Hemoglobin 14.2 g/dL (14.0-18.0); Immature Granulocyte Percent A 0.3 % (0-0.5); Lymphocytes Absolute Auto 3.46 K/mm3 (0.9-3.2); Mean Corpuscular HGB Conc 31.5 g/dl (32-36); Mean Corpuscular Hemoglobin 28.5 pg (26-34); Mean Corpuscular Volume 90.4 fl (80-100); Nucleated Red Blood Cells Absolute Auto 0.000 K/mm3 (0.0-0.012); Nucleated Red Blood Cells Perc 0.0 % (0.0-0.2); Platelet Count Result 293 k/mm3 (150-375); Red Blood Count 4.99 M/mm3 (4.6-6.20); White Blood Count 10.0 K/mm3 (4.5-10.0)
[2025-02-26 22:30] VITALS: BP 147/95; PULSE 88; RESP 16; O2SAT 99
[2025-02-26 22:33] LABS: Alanine Aminotransferase 17 U/L (6-50); Albumin Level 3.9 g/dL (3.5-5.1); Alkaline Phosphatase 69 U/L (38-126); Anion Gap 5 mmol/L (4-12); Aspartate Amino Transferase 20 U/L (17-59); Bilirubin,Total 0.5 mg/dL (0.2-1.3); Blood Urea Nitrogen 12 mg/dL (9-20); Calcium 9.1 mg/dL (8.4-10.2); Carbon Dioxide 24 mmol/L (22-30); Chloride 108 mmol/L (98-107); Estimated CRCL calculation 93 ml/min; Estimated Glomerular Filt Rate > 60; Glucose 94 mg/dL (65-110); Lipase 111 U/L (23-300); Potassium 4.3 mmol/L (3.4-5.0); Sodium 137 mmol/L (137-145); Total Protein 6.5 g/dL (6.3-8.2)
[2025-02-26 22:40] LABS: Add Urine Microscopic? YES; Appearance Urine Clear (Clear); Glucose Urine UA Negative (Negative); Leukocyte Esterase Ur Negative LEU/UL (Negative); Nitrate Urine Negative (Negative); Non Pathogenic Casts 0-2; Specific Grav Ur 1.030 (1.001-1.035)
[2025-02-26 22:43] LABS: INR 0.9; Prothrombin Time 12.8 Seconds (11.1-14.7)
[2025-02-26 22:44] LABS: Partial Thromboplastin Time 28.5 Seconds (22.3-36.8)
[2025-02-26 22:47] LABS: NT Pro B Type Natriuretic Pept 40 pg/mL (19.9-100)
--- NOTE | 2025-02-26 23:01 | ED_ITS ---
HPI - Abdominal Pain General Chief Complaint: Abdominal Pain Stated Complaint: abd pain Time Seen by Provider: 02/26/25 22:19 Source: patient Mode of arrival: ambulatory Limitations: no limitations History of Present Illness HPI narrative: This is a 39 year old male that presents to the ER with 2 complaints. Ongoing over the last couple of days. Reports abdominal pain, nausea. Denies vomiting, diarrhea, dysuria. Additionally endorsing bilateral knee pain without recent injury. Reports previous surgery on both of his knees in the past. He used to have braces that he wore. Denies fever, erythema, edema. Related Data Allergies Allergy/AdvReac Type Severity Reaction Status Date / Time No Known Allergies Allergy Verified 02/26/25 21:53 Review of Systems 2 Review of Systems: All systems reviewed & are unremarkable except as noted in HPI and below PMFSH Past Medical History Medical History Contusion of foot, right History of hypertension Tarsal tunnel syndrome of right side Family History Family History Other Cerebrovascular accident Diabetes mellitus Family history of alcoholism Family history of arthritis Family history of cardiovascular disease Family history of mental disorder Hypertension Social History Social History Gender identity (if verbalized by the patient): Male Exam 2 Narrative: GENERAL: Well-appearing, well-nourished, and in no acute distress. HEAD: Normocephalic, atraumatic. EYES: EOMI. CHEST: Clear to auscultation. No respiratory distress. No wheezes rales or rhonchi HEART: Regular rate and rhythm. No murmur heard. Normal peripheral pulses. ABDOMEN: Soft, nontender, nondistended, normal active bowel sounds. EXTREMITIES: Normal range of motion. No edema. SKIN: Warm, dry, no rash. NEURO: No focal deficits. Alert and oriented x3. PSYCH: Normal mood and affect Course Vital Signs Vital signs: Vital Signs Temperature 98.6 F 02/26/25 21:55 Pulse Rate 95 02/26/25 21:55 Respiratory Rate 20 02/26/25 21:55 Blood Pressure 131/74 02/26/25 21:55 Pulse Oximetry 99 02/26/25 21:55 Oxygen Delivery Room Air 02/26/25 21:55 Temperature 98.6 F 02/26/25 21:55 Pulse Rate 80 02/27/25 01:25 Respiratory Rate 17 02/27/25 01:25 Blood Pressure 139/85 02/27/25 01:25 Pulse Oximetry 100 02/27/25 01:25 Oxygen Delivery Room Air 02/26/25 21:55 MDM - Abdominal Pain MDM Narrative Medical decision making narrative: Patient presents to the department with 2 complaints. Reporting bilateral knee pain without recent injury. Also reporting abdominal pain. He is afebrile and nontoxic appearing. His vitals are stable. Cbc without leukocytosis. Metabolic panel without concerning findings. Urine without evidence of infection. CT abdomen and pelvis showing findings of possible diverticulitis. Bilateral knee x-rays showing degenerative changes. Patient was updated on his workup and agrees with plan of care. Instructed to have further follow-up with PCP and Orthopedics. He was given warnings to return to the ER Differential Diagnosis Differential diagnosis: Likely constipation, diverticulitis and other (Colitis) Lab Data Attestation: I reviewed the patient's lab results. 02/26/25 22:13 02/26/25 22:13 Labs: Lab Results 02/26/25 02/26/25 02/26/25 Range/Units 22:12 22:13 22:26 WBC 10.0 (4.5-10.0) K/mm3 RBC 4.99 (4.6-6.20) M/mm3 Hgb 14.2 (14.0-18.0) g/dL Hct 45.1 (42.0-52.0) % MCV 90.4 (80-100) fl MCH 28.5 (26-34) pg MCHC 31.5 L (32-36) g/dl RDW 13.0 (11.5-14.5) % Plt Count 293 (150-375) k/mm3 MPV 10.2 (7.4-10.4) fl Immature Gran % (Auto) 0.3 (0-0.5) % Neut % (Auto) 47.9 (45.5-73.1) % Lymph % (Auto) 34.7 (18.3-44.2) % [place] % (Auto) 11.8 H (2.6-8.5) % Eos % (Auto) 4.8 H (0-4.4) % Baso % (Auto) 0.5 (0.2-1.2) % Lymph # (Auto) 3.46 H (0.9-3.2) K/mm3 [place] # (Auto) 1.2 H (0.1-0.6) K/mm3 Eos # (Auto) 0.5 H (0-0.3) K/mm3 Baso # (Auto) 0.1 (0.0-0.1) K/mm3 Abs Immat Gran (auto) 0.03 (0.00-0.031) K/mm3 Absolute Neuts (auto) 4.8 (1.3-6.7) K/mm3 Absolute Nucleated RBC 0.000 (0.0-0.012) K/mm3 Nucleated RBC % 0.0 (0.0-0.2) % PT 12.8 (11.1-14.7) Seconds INR 0.9 APTT 28.5 (22.3-36.8) Seconds Sodium 137 (137-145) mmol/L Potassium 4.3 (3.4-5.0) mmol/L Chloride 108 H (98-107) mmol/L Carbon Dioxide 24 (22-30) mmol/L Anion Gap 5 (4-12) mmol/L BUN 12 (9-20) mg/dL Creatinine 1.28 (0.7-1.3) mg/dL Estim Creat Clear Calc 93 ml/min Estimated GFR > 60 (59 - ) Glucose 94 (65-110) mg/dL Calcium 9.1 (8.4-10.2) mg/dL Total Bilirubin 0.5 (0.2-1.3) mg/dL AST 20 (17-59) U/L ALT 17 (6-50) U/L Alkaline Phosphatase 69 (38-126) U/L NT-Pro-B Natriuret Pep 40 (19.9-100) pg/mL Total Protein 6.5 (6.3-8.2) g/dL Albumin 3.9 (3.5-5.1) g/dL Lipase 111 (23-300) U/L Urine Color Yellow (Yellow) Urine Appearance Clear (Clear) Urine pH 6.0 (5.0-9.0) Ur Specific [place] 1.030 (1.001-1.035) Urine Protein Negative (Negative) mg/dL Urine Glucose (UA) Negative (Negative) mg/dL Urine Ketones Trace H (Negative) mg/dL Ur Blood (Man) Trace (Negative) Urine Nitrate Negative (Negative) Urine Bilirubin Negative (Negative) Urine Urobilinogen 1.0 (<2.0) mg/dL Leukocyte Esterase Rfl Negative (Negative) [place]/UL Urine RBC 3-5 H (0-2) /hpf Urine WBC 0-5 (0-3) /hpf Ur Squamous Epith Cells None seen (Few) /hpf Urine Bacteria None seen /hpf Urine Casts 0-2 Imaging Data Radiologist's impression: Right knee x-ray: Mild degenerative changes Left knee x-ray: Mild degenerative changes CT abdomen and pelvis: Diverticula present in the colon. Thickening of the wall of the descending colon. Cannot exclude colitis. Critical Care Time Critical Care Time Critical Care Time: No Discharge Plan Discharge Clinical Impression: Diverticulitis, Arthritis Patient Disposition: Home Condition: Stable Instructions: Antibiotic Form, Diverticulitis (ED), Diverticulitis Diet (ED), Knee Pain (ED) Additional Instructions: Return to the ER if you experience fever, abdominal pain with nausea and vomiting, you are unable to keep down liquids or solids, or any other symptoms that are concerning to you Remain well hydrated. Liquid diet until your pain improves. Take oral antibiotics as prescribed Follow up with your primary care doctor and orthopedics Patient Language: Hungarian Prescriptions: New amoxicillin-pot clavulanate 875-125 mg tablet 1 tablet PO Q12H 10 Days Qty: 20 0RF No Action ibuprofen [IBU] 600 mg tablet 600 mg PO Q6H PRN (Reason: pain) Qty: 20 0RF hydrocodone-acetaminophen 5-325 mg tablet 1 tablet PO Q12H PRN (Reason: pain) Qty: 10 0RF ondansetron 4 mg tablet,disintegrating 4 mg PO Q8H PRN (Reason: nausea and vomiting) Qty: 10 0RF pantoprazole [Protonix] 40 mg tablet,delayed release (DR/EC) 40 mg PO HS 28 Days Qty: 28 0RF hydrocortisone 2.5 % cream 1 applic topical BID PRN (Reason: hemorrhoids) Qty: 20 0RF Follow-up/Referrals: Russel Bullard MD [Physician, Orthopedics] UNKNOWN,DOCTOR [Primary Care Provider]
[2025-02-26] MEDS: ONDANSETRON INJ 4 MG/2 ML VIAL IV PUSH (23:09)
[2025-02-26] MEDS: FAMOTIDINE 20 MG/2 ML VIAL IV PUSH (23:09)
--- NOTE | 2025-02-26 23:33 | PC.NURSE ---
Assumed care report received
[2025-02-27 01:25] VITALS: BP 139/85; PULSE 80; RESP 17; O2SAT 100
[2025-02-27 02:03] VITALS: BP 134/84; PULSE 72; RESP 20; O2SAT 98
== END 2025-02-27 02:07 | disposition home or self-care (01) ==
PROVIDERS: Student in an Organized Health Care Education/Training Program; Emergency Provider Physician Assistant
DX: K57.92 Diverticulitis of intestine, part unspecified, without perforation or abscess without bleeding (principal); M17.0 Bilateral primary osteoarthritis of knee; I10 Essential (primary) hypertension
CPT/HCPCS: 36415; 73562; 74177; 80053; 81001; 83690; 83880; 85025; 85610; 85730; 96374; 96375; 99284; J2405; Q9967